=== PATIENT | female | born 1945 ===

== ENCOUNTER 2024-04-16 10:20 | Emergency (ER) | payer OTHER ==
[~2024-04-16] VITALS: Ht 177.8 cm; Wt 77.1 kg
[2024-04-16] MEDS ORDERED: PROZAC20 MG PO (10:31)
[2024-04-16] MEDS ORDERED: TIROSINT88 MCG PO (10:31)
[2024-04-16] MEDS ORDERED: KEPPRA500 MG PO (10:31)
[2024-04-16] MEDS ORDERED: ROSUVASTATIN CAL5 MG PO (10:32)
[2024-04-16] MEDS ORDERED: TRAMADOL HCL 50 MG TABLET PO ONE (11:00)
[2024-04-16] MEDS ORDERED: DOLOGESIC 500-1 EACH PO (12:09)
== END 2024-04-16 12:08 | disposition home or self-care (01) ==
LOC: ER 10:22
DX: S42.392A Other fracture of shaft of left humerus, initial encounter for closed fracture (principal); W19.XXXA Unspecified fall, initial encounter; Y93.89 Activity, other specified; Y92.89 Other specified places as the place of occurrence of the external cause; Y99.8 Other external cause status